=== PATIENT | male | born 1980 | race Caucasian/White ===

== ENCOUNTER 2020-01-04 10:33 | Emergency (ER) | payer OTHER ==
[~2020-01-04] VITALS: Ht 188 cm; Wt 81.5 kg
--- NOTE | 2020-01-04 10:34 | ED General ---
General Stated Complaint: RT FOOT LACERATION Source of Information: Patient History of Present Illness Date Seen by Provider: January 04, 2020 Time Seen by Provider: 10:34 Initial Comments Patient is a 39 y/o male who comes to the ER today for evaluation of right foot laceration. [place] when he stepped into the water to retrieve something he dropped. He sustained a laceration over the plantar surface of the right foot. He is uncertain what the sharp object was but suspects that it was a rock. Tetanus imm is UTD. No additional injuries. No loss of motor function in the foot and no neuro complaints. Allergies and Home Medications Allergies Coded Allergies: No Known Drug Allergies (Unverified , 01/04/20) Home Medications Levofloxacin 500 Mg Tablet, 500 MG PO DAILY Prescribed by: ECTOR AUSTIN on 01/04/20 [id number] Patient Home Medication List Home Medication List Reviewed: Yes Review of Systems Review of Systems Constitutional: no symptoms reported EENTM: no symptoms reported Respiratory: no symptoms reported Musculoskeletal: no symptoms reported Skin: see HPI Physical Exam Vital Signs Vital Signs - First Documented 01/04/20 10:41 Temp 36.7 Pulse 64 Resp 18 B/P (MAP) 118/70 (86) Pulse Ox 97 Capillary Refill : Height, Weight, BMI Height: '" Weight: lbs. oz. kg; BMI Method: General Appearance: No Apparent Distress, WD/WN HEENT: PERRL/EOMI Neck: Full Range of Motion Respiratory: No Accessory Muscle Use Cardiovascular: No Edema Extremity: Normal Capillary Refill, Other (3 cm laceration over medial aspect of right plantar surface of midfoot. jagged edges and extends through skin into fascial tissue. All flexor mechanisms intact about toes and foot.) Neurologic/Psychiatric: Alert, Oriented x3 Procedures/Interventions Wound Location: Lower Extremities Other Wound Location described in PE section of note Wound Length (cm): 3 Wound's Depth, Shape: irregular, sub Q Betadine Prep?: Yes Anesthesia: Lidocaine w/ Epi Wound Debrided: minimal Suture: Monocryl Suture Size: 3-0 Number of Sutures: 11 Sterile Dressing Applied?: Yes Progress/Results/Core Measures Suspected Sepsis SIRS Temperature: Pulse: Respiratory Rate: Blood Pressure / Mean: Results/Orders My Orders Orders - ECTOR AUSTIN DO Foot 3 View Right (01/04/20 10:37) Vital Signs/I&O 01/04/20 01/04/20 10:41 11:30 Temp 36.7 36.7 Pulse 64 64 Resp 18 18 B/P (MAP) 118/70 (86) 118/70 (86) Pulse Ox 97 97 Capillary Refill : Progress Note : Time: 11:30 Progress Note Patient evaluated in the ER for laceration to right foot. Wound was copiously irrigated. XR's obtained to r/o debris or FB and none seen. Sutures placed. Patient d/c'd to home and recommended to return to ER in 10-14 days for suture removal. Placed on levaquin for antibiox prophylaxis. All of his questions were answered prior to discharge home and wound precautions were discussed. Departure Impression Primary Impression: Laceration of foot Disposition: 01 HOME, SELF-CARE Condition: Improved Departure-Patient Inst. Scripts Levofloxacin (Levaquin) 500 Mg Tablet 500 MG PO DAILY for 5 Days, TAB Prov: ECTOR AUSTIN DO 01/04/20 ECTOR AUSTIN DO January 04, 2020 10:34
--- NOTE | 2020-01-04 11:10 | Diagnostic Imaging Report ---
Right foot at 10:48 a.m. INDICATION: Laceration to bottom of foot. EXAMINATION: Three views were obtained. COMPARISON: There are no prior studies available for comparison. FINDINGS: The oblique view does show that there is an irregular laceration involving the soft tissues along the lateral aspect of the forefoot. There is no radiopaque foreign body identified in this area. There is a minute radiopaque density in the soft tissues in this region but this cannot be identified on the other regions. This could represent a small amount of debris as opposed to foreign body. There is no fracture or acute bony abnormality noted. IMPRESSION: 1. There is a soft tissue laceration to the plantar aspect of the lateral forefoot. There is no radiopaque foreign body identified in this area but there may be a small amount of debris present. 2. There is no acute bony abnormality evident. Dictated by: Dictated on workstation # [id number]
[2020-01-04] MEDS ORDERED: LEVO500T2 PO (11:29)
[2020-01-04 11:30] VITALS: BP 118/70
== END 2020-01-04 11:30 | disposition home or self-care (01) ==
LOC: ER FS 10:35
DX: S91.311A Laceration without foreign body, right foot, initial encounter (principal); W26.8XXA Contact with other sharp object(s), not elsewhere classified, initial encounter
CPT/HCPCS: 12001; 73630